=== PATIENT | male | born 2000 | race African-American/Black ===

== ENCOUNTER → 2021-10-06 | Emergency (ER) | payer BC, OTHER ==
[~2021-10-06] VITALS: Ht 185.4 cm; Wt 75.3 kg
[2021-10-06 17:29] VITALS: BP 156/83
== END | disposition left against medical advice (07) ==
LOC: ER 17:29 → EDBD 17:29 → EDUNIT# 17:29
DX: M25.521 Pain in right elbow (principal); Z53.29 Procedure and treatment not carried out because of patient's decision for other reasons; F17.210 Nicotine dependence, cigarettes, uncomplicated; F12.10 Cannabis abuse, uncomplicated; F15.10 Other stimulant abuse, uncomplicated; W19.XXXA Unspecified fall, initial encounter; Y93.89 Activity, other specified; Y92.89 Other specified places as the place of occurrence of the external cause; Y99.8 Other external cause status